=== PATIENT | female | born 1995 | race Caucasian/White ===

== ENCOUNTER → 2023-07-23 | Outpatient (CLI) | payer OTHER | END | disposition home or self-care (01) | LOC: LABWHC1 11:54 | PROVIDERS: ATTEND Nurse Practitioner Acute Care | DX: G43.909 Migraine, unspecified, not intractable, without status migrainosus (principal); H46.9 Unspecified optic neuritis; H53.9 Unspecified visual disturbance | CPT/HCPCS: 36415; 82040; 82042; 82784; 83916 ==